=== PATIENT | female | born 1990 | race Hispanic/Latino ===

== ENCOUNTER → 2019-03-20 | Outpatient (CLI) | payer MEDICAID | END | disposition home or self-care (01) | LOC: RAH 11:37 | PROVIDERS: ATTEND Physical Medicine & Rehabilitation | DX: M54.12 Radiculopathy, cervical region (principal); M54.2 Cervicalgia | CPT/HCPCS: 72052 ==

== ENCOUNTER → 2019-10-08 | Outpatient (CLI) | payer MEDICAID | END | disposition home or self-care (01) | LOC: RAH 08:53 | PROVIDERS: ATTEND Physical Medicine & Rehabilitation | DX: M40.56 Lordosis, unspecified, lumbar region (principal); M54.12 Radiculopathy, cervical region | CPT/HCPCS: 72141 ==

== ENCOUNTER → 2024-11-11 | Outpatient (CLI) | payer MEDICAID ==
--- NOTE | 2024-11-11 13:15 | NUR ---
MBSS COMPLETED (OUTPATIENT). No aspiration/no penetrations. Recommend regular solids, thin liquids and pills whole with liquids as tolerated. Compensatory strategies: 1. sit upright during oral intake DIAGNOSTIC FINDINGS: Oropharyngeal swallowing is within functional limits. No penetrations or aspiration observed. Pt with mild pharyngeal residue cleared with re-swallows. [employer] reviewed results and recommendations with patient. [employer] AMB[employer] educated patient on risks and consequences of aspiration. Speech therapy not warranted at this time. All questions answered. Addendum: 11/11/[address] [facility]ER DAVIDSON Amended: Links added.
--- NOTE | 2024-11-12 14:12 | HMCIMG ---
MODIFIED BARIUM SWALLOW W CINE REASON: DYSPHAGIA,UNSPECIFIED; FEEDING DIFFICULTIES,UNSPECIFIED FINDINGS: Fluoroscopic assistance was provided to the speech pathologist while performing examination. For findings and dietary recommendations, refer to speech pathologist's report. FLUORO TIME: 2.3 minutes IMPRESSION: Modified barium swallow as described.
== END | disposition home or self-care (01) ==
LOC: RAH 12:14
PROVIDERS: ATTEND Internal Medicine Gastroenterology
DX: R13.10 Dysphagia, unspecified (principal); R63.30 Feeding difficulties, unspecified
CPT/HCPCS: 74230; 92611